=== PATIENT | female | born 1955 | race African-American/Black ===

== ENCOUNTER 2021-11-21 08:30 | Inpatient (IN) | payer MEDICARE, MEDICAID ==
[~2021-11-21] VITALS: Ht 165.1 cm; Wt 80.3 kg
[~2021-11-21 08:30] MED LIST: EMTRIVA; KALETRA; benazapril; metoprolol
[2021-11-21] MEDS ORDERED: VISCOUS LIDOCAINE 2% 15 ML UDC PO STA (09:00)
[2021-11-21] MEDS ORDERED: MAGNESIUM/ALUMINUM HYDROXIDE/SIMETHICONE 30ML UDC PO STA (09:00)
[2021-11-21] MEDS ORDERED: DICYCLOMINE 10 MG/5 ML ORAL SYR PO STA (09:00)
[2021-11-21 09:23] LABS: BASOPHILS % 0.5 % (0.0-2.0); EOSINOPHILS % 0.5 % (0.0-5.0); HEMATOCRIT. 38.5 % (36.0-48.0); HEMOGLOBIN. 12.8 g/dL (12.0-16.0); LYMPHOCYTES % 30.1 % (20.0-50.0); MEAN CORPUSCULAR VOLUME 90.3 fL (81.0-99.0); MEAN PLATELET VOLUME 6.9 fl (7.4-10.4); MONOCYTES % 6.8 % (2.0-8.0); NEUTROPHILS % 62.1 % (40.0-76.0); PLATELET 223 x1000/uL (130-400); RED BLOOD CELL COUNT 4.27 mill/uL (4.2-5.4); RED CELL DISTRIBUTION WIDTH 13.5 % (11.6-14.6)
[2021-11-21 09:32] LABS: CHLORIDE 104 mEq/L (98-107)
[2021-11-21 10:44] LABS: CLARITY URINE CLEAR (CLEAR); COLOR URINE YELLOW (YELLOW); KETONES URINE 1+ (NEGATIVE); LEUKOCYTE ESTERASE URINE NEGATIVE (NEGATIVE); NITRITE URINE NEGATIVE (NEGATIVE); OCCULT BLOOD URINE NEGATIVE (NEGATIVE); PH URINE >=9.0 (4.5-8.0); PROTEIN URINE TRACE (NEGATIVE); SPECIFIC GRAVITY URINE 1.014 (1.005-1.030)
[2021-11-21] MEDS ORDERED: ASPIRIN 81MG TABLET PO ONE (12:30)
[2021-11-21] MEDS ORDERED: SODIUM CHLORIDE 0.9% 1,000 ML IV ONE (12:30)
[2021-11-21] MEDS ORDERED: ONDANSETRON HCL 4MG/2ML INJ IV PRN (12:45)
[2021-11-21] MEDS ORDERED: IPRATROPIUM/ALBUTEROL 0.5-3(2.5)MG/3ML NEB NEB PRN (12:45)
[2021-11-21] MEDS ORDERED: ACETAMINOPHEN 325MG TABLET PO PRN ×2 (12:45)
[2021-11-21] MEDS ORDERED: DOCUSATE SODIUM 100MG CAPSULE PO PRN (12:45)
[2021-11-21] MEDS ORDERED: MAGNESIUM/ALUMINUM HYDROXIDE/SIMETHICONE 30ML UDC PO PRN (12:45)
[2021-11-21] MEDS ORDERED: KETOROLAC 15MG/ML VIAL IV PRN (12:45)
[2021-11-21] MEDS ORDERED: NITROGLYCERIN 0.4MG TABLET SL SL PRN (12:45)
[2021-11-21] MEDS ORDERED: GUAIFENESIN 200MG/10ML SUGAR FREE UDC PO PRN (12:45)
[2021-11-21] MEDS ORDERED: ENOXAPARIN 40MG/0.4ML SYR SUBCUT SCH (14:00)
[2021-11-21 14:57] LABS: FOLIC ACID (FOLATE) SERUM >20 ng/mL ng/mL (>5.38); VITAMIN B12 SERUM 479 pg/mL (211-911)
[2021-11-21 17:00] VITALS: BP_SYST 182; BP_DIAS 82; BP_DIAS 92
[2021-11-21] MEDS ORDERED: APIX5TAB MT (18:13)
[2021-11-21] MEDS ORDERED: ASPI-1497 MT (18:13)
[2021-11-21] MEDS ORDERED: BICT1TAB3 (18:13)
[2021-11-21] MEDS ORDERED: BENA5TAB40 PO (18:13)
[2021-11-21] MEDS ORDERED: METO25TA6 MT (18:13)
[2021-11-21] MEDS: CLONIDINE 0.1MG TABLET PO PRN (18:28)
[2021-11-21] MEDS ORDERED: ZOLP5TAB2 PO (19:45)
[2021-11-21 20:00] VITALS: BP 134/67
[2021-11-21 21:33] LABS: INR 1.1; PROTHROMBIN TIME 11.9 sec (9.6-11.0)
[2021-11-21 21:44] LABS: CREATINE KINASE 99 IU/L (26-192); CREATINE KINASE MB FRACTION < 1.0 ng/mL (0.5-3.6)
[2021-11-21] MEDS: LISINOPRIL 20MG TABLET PO SCH (21:56)
[2021-11-21] MEDS: METOPROLOL TARTRATE 25MG TABLET PO SCH (21:56)
[2021-11-21] MEDS: FAMOTIDINE 20MG TABLET PO SCH (21:57)
[2021-11-21] MEDS: ZOLPIDEM TARTRATE 5MG TABLET PO PRN (21:57)
[2021-11-21] MEDS: ENOXAPARIN 80MG/0.8ML SYR SUBCUT SCH (22:42)
[2021-11-22] VITALS: BP 141/66
[2021-11-22 04:00] VITALS: BP 162/66
[2021-11-22] MEDS: CLONIDINE 0.1MG TABLET PO PRN ×2 (06:07→14:02)
[2021-11-22 07:03] LABS: BASOPHILS % 0.5 % (0.0-2.0); EOSINOPHILS % 1.8 % (0.0-5.0); HEMATOCRIT. 36.3 % (36.0-48.0); LYMPHOCYTES % 47.9 % (20.0-50.0); MEAN CORPUSCULAR HEMOGLOBIN 29.8 pg (28.0-32.0); MEAN PLATELET VOLUME 7.8 fl (7.4-10.4); MONOCYTES % 8.8 % (2.0-8.0); PLATELET 217 x1000/uL (130-400); RED BLOOD CELL COUNT 4.04 mill/uL (4.2-5.4); RED CELL DISTRIBUTION WIDTH 13.9 % (11.6-14.6)
[2021-11-22 07:18] LABS: CHLORIDE 106 mEq/L (98-107)
[2021-11-22 07:33] LABS: CREATINE KINASE 118 IU/L (26-192); CREATINE KINASE MB FRACTION < 1.0 ng/mL (0.5-3.6); PHOSPHORUS 2.6 mg/dL (2.5-4.9)
[2021-11-22 08:00] VITALS: BP 137/60
[2021-11-22] MEDS ORDERED: ASPIRIN 325MG EC TABLET PO SCH (09:00)
[2021-11-22 09:12] LABS: *AMPHETAMINES SCREEN URINE NEGATIVE (NEGATIVE); *BARBITURATES SCREEN URINE NEGATIVE (NEGATIVE); *BENZODIAZEPINES SCREEN URINE NEGATIVE (NEGATIVE); *COCAINE SCREEN URINE NEGATIVE (NEGATIVE); CANNABINOID URINE SCREEN NEGATIVE (NEGATIVE); METHADONE URINE SCREEN NEGATIVE (NEGATIVE); OPIATES URINE SCREEN PRESUMTIVE POSITIVE (NEGATIVE); PHENCYCLIDINE URINE SCREEN NEGATIVE (NEGATIVE)
[2021-11-22] MEDS: METOPROLOL TARTRATE 25MG TABLET PO SCH ×2 (09:52→20:41)
[2021-11-22] MEDS: ENOXAPARIN 80MG/0.8ML SYR SUBCUT SCH (09:52)
[2021-11-22] MEDS: LISINOPRIL 20MG TABLET PO SCH ×2 (09:53→21:03)
[2021-11-22] MEDS: FAMOTIDINE 20MG TABLET PO SCH ×2 (09:53→21:03)
[2021-11-22 12:00] VITALS: BP 165/66
[2021-11-22 16:00] VITALS: BP 134/70
[2021-11-22] MEDS ORDERED: APIXABAN 5 MG TABLET PO SCH (17:00)
[2021-11-22 20:00] VITALS: BP 127/70
[2021-11-22] MEDS: ZOLPIDEM TARTRATE 5MG TABLET PO PRN (21:03)
[2021-11-23] VITALS: BP 164/73
[2021-11-23 04:00] VITALS: BP 167/85
[2021-11-23 08:00] VITALS: BP 163/85
[2021-11-23] MEDS ORDERED: HYDRALAZINE 20MG/ML VIAL IV PRN (08:15)
[2021-11-23] MEDS: LISINOPRIL 20MG TABLET PO SCH (09:14)
[2021-11-23] MEDS: FAMOTIDINE 20MG TABLET PO SCH (09:14)
[2021-11-23] MEDS ORDERED: HYDRALAZINE HCL 50MG TABLET PO SCH (10:15)
[2021-11-23 12:00] VITALS: BP 150/50
[2021-11-23] MEDS ORDERED: ENOXAPARIN 80MG/0.8ML SYR SUBCUT SCH (18:00)
== END 2021-11-23 16:50 | disposition left against medical advice (07) | DRG 281 ==
LOC: ER 08:30 → 6WST 12:26 → EDBEDREQTM 12:27 → EDBEDREQ 12:27 → ENRESERV 12:55
PROVIDERS: ADMIT Internal Medicine; ATTEND Internal Medicine
DX: I21.4 Non-ST elevation (NSTEMI) myocardial infarction (principal); E44.1 Mild protein-calorie malnutrition; N39.0 Urinary tract infection, site not specified; I16.0 Hypertensive urgency; Z20.822 Contact with and (suspected) exposure to COVID-19; I25.2 Old myocardial infarction; R55 Syncope and collapse; Z21 Asymptomatic human immunodeficiency virus [HIV] infection status; I10 Essential (primary) hypertension; Z96.659 Presence of unspecified artificial knee joint; Z68.29 Body mass index [BMI] 29.0-29.9, adult; H53.8 Other visual disturbances; Z79.899 Other long term (current) drug therapy; Z86.718 Personal history of other venous thrombosis and embolism; Z53.29 Procedure and treatment not carried out because of patient's decision for other reasons
CPT/HCPCS: 36415; 71045; 78582; 80053; 80061; 80305; 81003; 82550; 82553; 82607; 82746; 83036; 83540; 83550; 83735; 84100; 84443; 84484; 85025; 87426; 93005; 93306; 93970; 99285; A9558; J1650; J7030